=== PATIENT | female | born 2005 | race Caucasian/White ===

== ENCOUNTER 2023-08-26 14:29 | Emergency (ER) | payer MEDICAID ==
[~2023-08-26] VITALS: Ht 161.3 cm; Wt 49.0 kg
[2023-08-26 14:44] VITALS: BP 118/77; PULSE 90; RESP 18; TEMP 97.5; O2SAT 98
[2023-08-26] MEDS ORDERED: IBUP-1842 PO (15:48)
== END 2023-08-26 15:59 | disposition home or self-care (01) ==
LOC: MED 14:29
DX: L04.0 Acute lymphadenitis of face, head and neck (principal); Z79.899 Other long term (current) drug therapy
CPT/HCPCS: 99282